=== PATIENT | male | born 1975 | race Caucasian/White ===

== ENCOUNTER 2016-10-12 05:48 | Outpatient (CLI) | payer OTHER ==
[~2016-10-12] VITALS: Ht 162.6 cm; Wt 65.8 kg
[2016-10-12] MEDS ORDERED: PANT40TA3 PO (14:42)
== END 2016-10-12 14:43 ==
LOC: PREOP 05:48
PROVIDERS: ATTEND Surgery Pediatric Surgery
DX: Z01.818 Encounter for other preprocedural examination (principal); Z12.11 Encounter for screening for malignant neoplasm of colon; K21.9 Gastro-esophageal reflux disease without esophagitis

== ENCOUNTER 2016-10-14 10:20 | Day surgery (SDC) | payer OTHER ==
[~2016-10-14] VITALS: Ht 162.6 cm; Wt 65.8 kg
[~2016-10-14 10:20] MED LIST: NS IV 500 ML 500 ML ONE; PANT40TA3 PO
--- OUTSIDE RECORDS SUMMARY | 2016-10-14 10:23 | XMS REPORT | Continuity of Care Document ---
Author Author [facility] Organization [facility] Address Unknown Phone Unavailable Care Team Providers Care Snack Stewardess Name Role Phone DENIS FLOREZ DO PCP Insurance Providers Payer Name Policy Number Subscriber Name Relationship Enter Insurance Name [id number] Donn Harding Self / Same As Patient Advance Directives Directive Response Recorded Date/Time Advance Directives No 10/12/16 2:38pm Resuscitation Status Full Code 10/12/16 2:38pm Problems No problem information available. Medications Current Home Medications Medication Dose Units Route Directions Days/Qty Instructions Start Date Pantoprazole Sodium 40 Mg 40 Mg Oral Daily 10/12/16 Social History Social History Problem Response Recorded Date/Time Alcohol Use Rarely Uses 10/12/2016 2:38pm Recreational Drug Use No 10/12/2016 2:38pm Recent Foreign Travel No 10/12/2016 2:38pm Recent Infectious Disease Exposure No 10/12/2016 2:38pm Smoking Status Never a Smoker 10/12/2016 2:38pm Recent Hopitalizations No 10/12/2016 2:38pm Query Response Start Date Stop Date Smoking Status Never a Smoker Hospital Discharge Instructions No hospital discharge instructions. Plan of Care Discharge Date 10/12/16 2:43pm Prescriptions See Medication Section Functional Status No functional status results. Allergies, Adverse Reactions, Alerts No known allergies. Immunizations No immunization records. Vital Signs Acute Vital Signs Vital Response Date/Time Height (Feet) 5 feet 10/12/2016 2:38pm Height (Inches) 4.00 inches 10/12/2016 2:38pm Height (Calculated Centimeters) 162.883960 cm 10/12/2016 2:38pm Weight (Pounds) 145 pounds 10/12/2016 2:38pm Weight (Ounces) 0.0 oz 10/12/2016 2:38pm Weight (Calculated Grams) 45551.89 gm 10/12/2016 2:38pm Weight (Calculated Kilograms) 65.277100 kilograms 10/12/2016 2:38pm Calculated BMI 24.9 10/12/2016 2:38pm Results No known relevant diagnostic tests, laboratory data and/or discharge summary. Procedures No known history of procedures. Encounters Encounter Location Arrival/Admit Date Discharge/Depart Date Attending Provider Departed Clinic [facility] 10/12/16 5:48am 10/12/16 2: 43pm JOSE TOTH MD
--- OUTSIDE RECORDS SUMMARY | 2016-10-14 10:23 | XMS REPORT | Continuity of Care Document ---
Author Author [facility] Organization [facility] Address Unknown Phone Unavailable Care Team Providers Care Records Tech Name Role Phone DENIS FLOREZ DO PCP Insurance Providers Payer Name Policy Number Subscriber Name Relationship Enter Insurance Name [id number] Donn Harding Self / Same As Patient [...] 4.00 inches 10/12/2016 2:38pm Height (Calculated Centimeters) 162.363202 cm 10/12/2016 2:38pm Weight (Pounds) 145 pounds 10/12/2016 2:38pm Weight (Ounces) 0.0 oz 10/12/2016 2:38pm Weight (Calculated Grams) 30430.89 gm 10/12/2016 2:38pm Weight (Calculated Kilograms) 65.377393 kilograms 10/12/2016 2:38pm Calculated BMI 24.9 10/12/2016 2:38pm Results No known relevant diagnostic tests, laboratory data and/or discharge summary. Procedures No known history of procedures. Encounters Encounter Location Arrival/Admit Date Discharge/Depart Date Attending Provider Departed Clinic [facility] 10/12/16 5:48am 10/12/16 2: 43pm JOSE TOTH MD
[2016-10-14 10:35] VITALS: BP 101/71
[2016-10-14] MEDS ORDERED: LIDOCAINE JELLY 2% (XYLOCAINE) 5 ML TUBE MM PRN (10:45)
[2016-10-14] MEDS ORDERED: NALOXONE 0.4 MG/ML 1 ML (NARCAN) VIAL IVP PRN (10:45)
[2016-10-14] MEDS ORDERED: NS IV 500 ML 500 ML IV PRN (10:45)
[2016-10-14] MEDS ORDERED: HURRICAINE EXT TUBE (BENZOCAINE) XX PRN (10:45)
[2016-10-14] MEDS ORDERED: FLUMAZENIL (ROMAZICON) 0.1 MG/ML 5 ML VIAL INJ PRN (10:45)
--- NOTE | 2016-10-14 10:51 | Conscious Sedation/ASA ---
Conscious Sedation Pre-Proced Time Reviewed: 10:50 ASA Class: 2 Airway Mallampati Classification: ([place] appropriate class) I. II. III, IV Lungs Heart ASA score ASA 1: a normal healthy patient ASA 2: a patient with a mild systemic disease (mid diabetes, controlled hypertension, obesity ASA 3: a patient with a severe systemic disease that limits activity (angina , COPD, prior Myocardial infarction) ASA 4: a patient with an incapacitating disease that is a constant threat to life (CHF, renal failure) ASA 5: a moribund patient not expected to survive 24 hrs. (ruptured aneurysm) ASA 6: a declared brain patient whose organs are being harvested. For emergent operations, add the letter E after the classification Grade 2 Sedation Plan: Analgesia, Amnesia, Plan communicated to team members, Discussed options with patient/fam, Discussed risks with patient/fam Note The patient is an appropriate candidate to undergo the planned procedure, sedation, and anesthesia. The patient immediately re-assessed prior to indication. JOSE TOTH MD Oct 14, 2016 10:51 am
--- NOTE | 2016-10-14 10:51 | Progress Note-Pre Operative ---
Pre-Operative Progress Note H&P Reviewed The H&P was reviewed, patient examined and no changes noted. Date H&P Reviewed: Oct 14, 2016 Time H&P Reviewed: 10:50 Pre-Operative Diagnosis: GERD, rectal bleed JOSE TOTH MD Oct 14, 2016 10:51 am
[2016-10-14] MEDS ORDERED: MIDAZOLAM 2 MG/2 ML (VERSED) VIAL ONE ×6 (10:58)
[2016-10-14] MEDS ORDERED: LIDOCAINE JELLY 2% (XYLOCAINE) 30 ML TUBE ONE (10:59)
[2016-10-14] MEDS ORDERED: fentaNYL INJECTION 100 MCG/2 ML AMP ONE ×2 (10:59→11:01)
[2016-10-14] MEDS ORDERED: morphine INJ 10 MG/ML 1ML (SYR OR VIAL) IV PRN (11:00)
[2016-10-14] MEDS ORDERED: HYDROcodone/APAP 5 MG/325 MG (LORTAB) TAB PO PRN (11:00)
[2016-10-14] MEDS ORDERED: ACETAMINOPHEN 325 MG TABLET/CAPLET (TYLENOL) PO PRN (11:00)
[2016-10-14] MEDS ORDERED: ONDANSETRON 4 MG/2 ML (SDV) Z0FRAN IV PRN (11:00)
[2016-10-14] MEDS: fentaNYL INJECTION 100 MCG/2 ML AMP IVP PRN ×4 (11:08→11:25)
[2016-10-14] MEDS: MIDAZOLAM 2 MG/2 ML (VERSED) VIAL IVP PRN ×6 (11:09→11:29)
--- NOTE | 2016-10-14 12:01 | Progress Note-Post Operative ---
Post-Operative Progess Note Pre-Operative Diagnosis GERD, rectal bleed Post-Operative Diagnosis reflux esophagitis(class B), mild-moderate HH(2-3cm), mild gastritis. chronic stage 2 ext and int hemorrhoids. Post-Op Procedure Note Date of Procedure: Oct 14, 2016 Name of Procedure: EGD with bx. Colonoscopy. Anesthesia Type GET Estimated blood loss (mL): minimal Specimen(s) collected antrum, GE JOSE Newsome MD Oct 14, 2016 12:01 pm
--- NOTE | 2016-10-14 12:02 | Discharge Inst-Surgical ---
D/C Lap Instructions-NAVNEET Follow Up PRN Activity as tolerated High Fiber Diet 25g or more per day Avoid Alcohol, Caffeine, Spicy [place] and Acid foods. Drink 64 fluid oz or more of fluids per day. Symptoms to Report: Fever over 101 degree F, Nausea/Vomiting If any problems/questions: Contact your physician or go to Emergency Room JOSE TOTH MD Oct 14, 2016 12:02 pm
[2016-10-14 12:10] VITALS: BP 116/71
[2016-10-14 12:35] VITALS: BP 104/83
[2016-10-14 12:46] VITALS: BP 104/83
--- NOTE | 2016-10-17 07:04 | PROCEDURE REPORT ---
PROCEDURE PHYSICIAN: JOSE TOTH DATE OF PROCEDURE: 10/14/2016 PREOPERATIVE DIAGNOSES: 1. Gastroesophageal reflux disease. 2. Diarrhea. 3. Rectal bleeding. POSTOPERATIVE DIAGNOSES: 1. Reflux esophagitis, class B. 2. Mild to moderate size hiatal hernia, approximately 2 to 3 cm in size. 3. Mild gastritis. 4. Chronic, stage II external and internal hemorrhoids. 5. The remainder of the rectum and colon were normal. PROCEDURE: 1. EGD with biopsy. 2. Colonoscopy. SURGEON: Dr. Toth. ANESTHESIA: Conscious sedation. ESTIMATED BLOOD LOSS: Minimal. FINDINGS: EGD: 1. Reflux esophagitis, class B. 2. Mild to moderate size hiatal hernia, approximately 2 to 3 cm in size. 3. Mild gastritis. 4. The pylorus and duodenum appeared normal. COLONOSCOPY: 1. Chronic, stage II external and internal hemorrhoids. 2. Prostate gland was palpable and appeared normal. 3. The remainder of the rectum and colon were normal. DISPOSITION: The patient tolerated the procedure well. Mr. Alex Harding is a 41-year-old male known to us. We had initially seen him approximately 1 year ago for issues with crampy abdominal pain, as well as reflux. This gentleman reports that he is under a significant amount of stress due to his work. He works swing shift at a chemical plant and that does cause a lot of stress and anxiety. He also reports that other coworkers have become sick and that has also caused anxiety. He reports that he has had reflux type of symptoms for years; however, they have worsened in the past year despite being on Protonix. He also reports crampy lower abdominal pain as well as intermittent episodes of diarrhea. He reports that when the diarrhea is bad enough, he will have small amounts of self-limited red blood per rectum. PROCEDURE: The patient was brought to the endoscopy suite, laid in the left lateral decubitus position. After adequate IV pain and sedative medications and conscious sedation anesthesia, the mouthpiece was applied. The endoscope was placed in the mouth, visualizing the pharynx and hypopharyngeal region. Vocal cords, epiglottis and vallecula identified and appeared to be normal. The endoscope was then gently intubated into the esophageal opening and the esophagus insufflated. The endoscope was then advanced through the first, second, and 3rd portions of the esophagus. At the level of the GE junction, a reflux esophagitis, class B identified. There were no ulcers or strictures identified in this region. A biopsy was taken with forceps of visualization of good hemostasis. The endoscope was then easily advanced into stomach and endoscope retroflexed. A mild to moderate size hiatal hernia, approximately 2 to 3 cm in size was identified. There was a mild gastritis noted towards the stomach antrum. There were no formal ulcers, polyps or any neoplasms identified. A biopsy was taken of the antrum with forceps with visualization of good hemostasis. The endoscope was then advanced through the pylorus and into the first and second portions of the duodenum which appeared normal. The endoscope was then slowly withdrawn while taking a second look and suctioning residual air with no additional findings. The patient tolerated the procedure well. We will have him proceed with the necessary lifestyle and diet accommodation for the reflux esophagitis, gastritis, as well as a hiatal hernia which included smaller more frequent meals, avoidance of eating at night, as well as head elevation while lying supine. He also needs to avoid caffeinated beverages, spicy, greasy and acidic foods. We want him to continue with Protonix on a daily basis. COLONOSCOPY: Under the same sedation anesthesia, we then proceeded with the colonoscopy portion of the procedure. A digital rectal examination was performed and revealed chronic stage II external and internal hemorrhoids which were not actively edematous nor inflamed and no bleeding. Normal sphincter tone was felt and there were no palpable masses. The prostate gland was palpable and appeared normal. The endoscope was then intubated and the rectum gently insufflated. The endoscope was then advanced through the valves of [place] the rectum with no polyps or any neoplasms identified. We then proceeded through the sigmoid colon where no diverticulosis was identified. The endoscope was then advanced through the remainder of the descending, transverse, and ascending colon to the cecum. These segments were normal. There were no polyps or any neoplasms identified throughout the colon or rectum, as well as no inflammatory changes. The endoscope was slowly withdrawn while taking a second look and suctioning of residual air with no additional findings. The patient tolerated the procedure well. 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 He does not need another colonoscopy for another 10 years. Job ID: [id number] Dictated Date: 10/14/2016 12:09:42 [employer] Date: 10/17/2016 06:53:10 / darrell
[2016-10-18] MEDS ORDERED: LIDOCAINE JELLY 2% (XYLOCAINE) 30 ML TUBE TOP ONE (08:30)
== END 2016-10-14 12:48 | disposition home or self-care (01) ==
LOC: SDC 10:20
PROVIDERS: ATTEND Surgery Pediatric Surgery
DX: R19.7 Diarrhea, unspecified (principal); K64.1 Second degree hemorrhoids; K21.0 Gastro-esophageal reflux disease with esophagitis; K44.9 Diaphragmatic hernia without obstruction or gangrene; K29.70 Gastritis, unspecified, without bleeding

== ENCOUNTER → 2017-01-30 | Outpatient (CLI) | payer OTHER ==
[~2017-01-30] MED LIST changes: -NS IV 500 ML 500 ML ONE
--- NOTE | 2017-02-03 09:18 | Diagnostic Imaging Report ---
PROCEDURE: US abdomen complete. INDICATION: Right lower quadrant and left-sided flank pain TECHNIQUE: Multiple real-time chauhan scale sonographic images of the abdomen. CORRELATION STUDY: None FINDINGS: LIVER: 16 cm in length. Approximately 18 mm echogenic foci in the right lobe of the liver compatible with calcification with posterior shadowing. GALLBLADDER: Present and unremarkable. No shadowing gallstones or pericholecystic fluid. COMMON BILE DUCT: Normal at 3 mm. PANCREAS: Largely obscured and not well visualized. SPLEEN: Also very limited in visualization not well demonstrated ABDOMINAL AORTA: Proximally not visualized, distally appearing unremarkable. INFERIOR VENA CAVA: Limited in visualization. RIGHT KIDNEY: 11.2 cm. Unremarkable. LEFT KIDNEY: 10.6 cm. Unremarkable. ASCITES: None. IMPRESSION: 1. Apparent calcification of the right lobe of the liver. Findings nonspecific but does appear to be changed from prior CT imaging of June 2007. 2. Very limited visualization of the of the spleen, pancreas, and abdominal aorta. Dictated by: Dictated on workstation # [id number]
== END ==
LOC: RAD 16:21
PROVIDERS: ATTEND Family Medicine
DX: R10.31 Right lower quadrant pain (principal); R10.84 Generalized abdominal pain

== ENCOUNTER → 2017-02-24 | Outpatient (CLI) | payer OTHER ==
[~2017-02-24] MED LIST changes: +CATHETER FLUSH 10 ML SYR IV PRN; +IOHEXOL 350 MG/ML 100 ML (OMNIPAQUE 350) VIAL IV ONE; +NS 100 ML (IVPB) BAG IV ONE
--- NOTE | 2017-02-24 16:29 | Diagnostic Imaging Report ---
PROCEDURE: CT abdomen and pelvis with contrast. TECHNIQUE: Multiple contiguous axial images were obtained through the abdomen and pelvis after administration of intravenous contrast. INDICATION: Abdominal pain for the past 2 years. Comparison with 06/26/2017. Ultrasound from 02/03/2017. FINDINGS: Lung bases are clear. There is calcification of lesion within the liver within the midportion of the right lobe measuring approximately 11 mm. This does correlate with the ultrasound findings. This does correlate with the hypodense lesion noted in the midportion of the liver on previous CT scan of 2006. No additional liver lesions have occurred. Following IV contrast, there is no abnormal enhancement throughout the abdominal organs. The aorta and abdominal vessels enhance in a normal fashion. Pancreas is normal. Gallbladder is not dilated. Stomach and small bowel are not distended. The colon shows normal stool and gas pattern. The appendix is normal. No evidence of diverticulitis with a few diverticula in the sigmoid colon. There is no free air or free fluid. Prostate is not enlarged. Bladder appears normal. No blastic or lytic lesions. IMPRESSION: 1. The calcification noted on ultrasound is confirmed by CT in the midportion of the right lobe of the liver. This does correlate with an old small hypodense lesion on the CT scan of 2006. This does have a benign appearance. This could represent old inflammatory granuloma. Other consideration would have been old vascular malformation with calcification. 2. Remainder of the abdomen is normal and unchanged. Dictated by: Dictated on workstation # [id number]
== END ==
LOC: RAD 15:28
PROVIDERS: ATTEND Family Medicine
DX: R10.32 Left lower quadrant pain (principal); K76.9 Liver disease, unspecified
CPT/HCPCS: 74177